=== PATIENT | female | born 2005 | race Caucasian/White ===

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

== ENCOUNTER → 2025-01-02 10:15 | Outpatient (BNVA) | payer BC, MEDICAID, SELFPAY | PROVIDERS: PCP Nurse Practitioner Family; Visit Provider Nurse Practitioner Family | DX: R10.11 Right upper quadrant pain (principal) | CPT/HCPCS: 80053; 81000; 81025; 85025 ==

== ENCOUNTER → 2025-01-07 09:54 | Outpatient (BNVA) | payer BC, MEDICAID, SELFPAY | PROVIDERS: PCP Nurse Practitioner Family; Visit Provider Nurse Practitioner Family | DX: R10.11 Right upper quadrant pain (principal); D50.9 Iron deficiency anemia, unspecified | CPT/HCPCS: 82728; 83550; 85025 ==

== ENCOUNTER 2025-01-13 07:42 | Outpatient (CLI) | payer SELFPAY ==
--- NOTE | 2025-01-13 08:00 | USR_ITS ---
PROCEDURE INFORMATION: Exam: US Abdomen; Limited Exam date and time: 01/13/2025 8:01 AM Age: 19 years old Clinical indication: Abdominal pain; Localized; Right upper quadrant (ruq); Additional info: R10.11 - right upper quadrant pain TECHNIQUE: Imaging protocol: Real time ultrasound of the abdomen with image documentation. Limited exam focused on the region of clinical interest. COMPARISON: No relevant prior studies available. FINDINGS: US/US gall bladder [id number] IMPRESSION: No acute findings.
== END 2025-01-13 07:43 | disposition home or self-care (01) ==
LOC: RAD 07:43
PROVIDERS: PCP Nurse Practitioner Family; Visit Provider Nurse Practitioner Family
DX: R10.11 Right upper quadrant pain (principal)
CPT/HCPCS: 76705

== ENCOUNTER 2025-01-21 15:13 | Inpatient (IN) | payer SELFPAY ==
[2025-01-21 15:28] VITALS: BP 120/80; PULSE 85; RESP 18; TEMP 36.7; O2SAT 96; BMI 34.5
--- NOTE | 2025-01-21 15:28 | W.ED.PSYCHS ---
HPI - Psych General: Chief Complaint: Psychiatric Symptoms Stated Complaint: MHE Time Seen by Provider: 01/21/25 15:14 Source: patient Mode of arrival: ambulatory Limitations: no limitations History of Present Illness: 19-year-old female states she been having severe depression she states she been having a lot of stressors at home the last 2 weeks she states that recently she started having active suicidal thoughts and is concerned she may harm herself. She denies any worsening from factors. Associated symptoms: Reports depression Related Data Previous Rx's ?Medication ?Instructions ?Recorded Disposable nebulizer circuit #1 ea 04/05/22 nebulizers #1 ea 04/05/22 montelukast 10 mg tablet 10 mg PO DAILY #30 tabs 08/29/23 (Singulair) fexofenadine 180 mg tablet 180 mg PO DAILY 90 days #90 tabs 11/08/23 (Rekha Allergy) topiramate 50 mg tablet (Topamax) 50 mg PO BID #60 tabs 03/02/24 venlafaxine 75 mg capsule,extended 75 mg PO DAILY #30 caps 03/02/24 release 24 hr (Effexor XR) ibuprofen 600 mg tablet 600 mg PO Q8H PRN pain #30 tabs 05/17/24 miscellaneous medical supply 1 ea miscellaneous DAILY #1 ea 05/17/24 miscellaneous medical supply 1 ea miscellaneous DAILY ankle 05/17/24 sprain #1 ea miscellaneous medical supply 1 ea miscellaneous PER PKG DIR 05/17/24 ankle sprain #1 ea ASO #1 ea 06/04/24 Supinator #1 ea 06/04/24 albuterol sulfate 90 mcg/actuation 2 puff inhalation Q6H PRN 06/27/24 aerosol inhaler shortness of breath or wheezing #8.5 grams sole supports #1 ea 07/23/24 budesonide-formoterol HFA 80 2 puff inhalation BID #10.2 grams 09/16/24 mcg-4.5 mcg/actuation aerosol inhaler (Symbicort) ferrous gluconate 324 mg (38 mg 324 mg PO BID #60 tabs 01/21/25 iron) tablet Allergies Allergy/AdvReac Type Severity Reaction Status Date / Time No Known Allergies Allergy Verified 01/02/25 09:11 Review of Systems Const: Denies: fever(s), chills, body aches or change in appetite ENMT: Denies: throat pain or dental pain Card: Denies: chest pain Resp: Denies: dyspnea GI: Denies: abdominal pain, nausea, vomiting or diarrhea : Denies: dysuria Musc: Denies: neck pain or back pain Skin/Breast: Denies: rash Neuro: Denies: headache(s) Psych: Reports: depression PFSH ED PFSH: Medical History Asthma Environmental and seasonal allergies Attention deficit disorder (ADD) without hyperactivity Surgical History [place] teeth extracted Hx of tonsillectomy History of eyelid surgery Left eye 2008 Family History Grandfather Hypertension Smoking Grandmother Cancer Colon Social History Smoking and tobacco/nicotine status: never used tobacco/nicotine Second hand smoke exposure: Yes Alcohol intake: never Substance/Drug Use: never Adopted: Yes Caregiver/support person: Yes Household members: family Housing: House Marital status: Single Number of children: 0 Highest education level completed: 12th Grade, No Diploma Do you think of yourself as: Straight/Heterosexual Current gender identity: Female Special juan m needs: No Physical Exam Const: COMMON NORMALS: no acute distress, patient oriented x3 and healthy appearing HENMT: COMMON NORMALS: normocephalic and atraumatic HEAD & SCALP: normocephalic and atraumatic Eye: COMMON NORMALS: conjunctivae normal CONJUNCTIVA: Yes conjunctivae normal Neck/C-Spine: COMMON NORMALS: full ROM and supple Chest: COMMONS NORMALS: normal inspection of the chest Resp: COMMON NORMALS: normal respiratory effort Cardio: COMMON NORMALS: regular rate RATE: regular rate Extremity: COMMON NORMALS: normal to inspection and full ROM Neuro: COMMON NORMALS: patient oriented x3, moves all extremities and no focal motor deficits Psych: COMMON NORMALS: mental status grossly normal, Normal thought process present and cooperative MOOD & AFFECT: Yes depressed mood THOUGHT PROCESS: Normal thought process present THOUGHT CONTENT: Yes Suicidality present Skin: COMMON NORMALS: no rashes or lesions noted and no wounds GENERAL SKIN EXAM: no rashes or lesions noted Course Vital Signs: Vital signs: Vital Signs Temperature 98.1 F 01/21/25 15:28 Pulse Rate 85 01/21/25 15:28 Respiratory Rate 18 01/21/25 15:28 Blood Pressure 120/80 01/21/25 15:28 Pulse Oximetry 98 01/21/25 15:53 Oxygen Delivery Me thod Room Air 01/21/25 15:53 MDM - Psych Medical Decision Making Patient presents here with suicidal ideation she was placed on 96-hour hold I spoke to psychiatrist will admit at this time. Medical Records I reviewed the patient's medical records. Lab Data I reviewed the patient's lab results. Laboratory Results HCG, Qual Negative (Negative) 01/21/25 15:40 No radiology studies performed this visit Discharge Plan Discharge Condition: Stable Prescriptions: No Action miscellaneous medical supply Misc 1 ea miscellaneous PER PKG DIR Qty: 1 0RF Rx Instructions: crutches miscellaneous medical supply Misc 1 ea miscellaneous DAILY Qty: 1 0RF Rx Instructions: walking boot miscellaneous medical supply Misc 1 ea miscellaneous DAILY Qty: 1 0RF Rx Instructions: walking boot ibuprofen 600 mg tablet 600 mg PO Q8H PRN (Reason: pain) Qty: 30 0RF (DME) ASO See Rx Instructions .Route .MEDSUPPLY Qty: 1 0RF Rx Instructions: As directed (DME) Supinator See Rx Instructions .Route .MEDSUPPLY Qty: 1 0RF Rx Instructions: As directed (DME) sole supports See Rx Instructions .Route .MEDSUPPLY Qty: 1 0RF Rx Instructions: As directed (DME) nebulizers Misc See Rx Instructions .ROUTE .MEDSUPPLY Qty: 1 0RF Rx Instructions: daily (DME) Disposable nebulizer circuit See Rx Instructions .ROUTE .MEDSUPPLY Qty: 1 0RF Rx Instructions: As directed montelukast [Singulair] 10 mg tablet 10 mg PO DAILY Qty: 30 2RF fexofenadine [Rekha Allergy] 180 mg tablet 180 mg PO DAILY 90 Days Qty: 90 1RF albuterol sulfate 90 mcg/actuation HFA aerosol inhaler 2 puff inhalation Q6H PRN (Reason: shortness of breath or wheezing) Qty: 8.5 2RF venlafaxine [Effexor XR] 75 mg capsule,extended release 24hr 75 mg PO DAILY Qty: 30 2RF topiramate [Topamax] 50 mg tablet 50 mg PO BID Qty: 60 2RF budesonide-formoterol [Symbicort] 80-4.5 mcg/actuation HFA aerosol inhaler 2 puff inhalation BID Qty: 10.2 2RF ferrous gluconate 324 mg (38 mg iron) tablet 324 mg PO BID Qty: 60 2RF Referrals: Madalyn Baldwin FNP-C [Primary Care Provider, Family Practice] Print Language: Kiswahili Coding Level of Care Code ED Supervisor Fish Bait Processing for Kathryn Lebron
[2025-01-21 15:53] VITALS: O2SAT 98
[2025-01-21 15:57] LABS: HCG Qualitative Urine. Negative (Negative)
[2025-01-21 16:10] LABS: Hematocrit 39.6 % (36-47); Hemoglobin 12.60 g/dL (12.4-14.8); Mean Corpuscular HGB Conc 31.8 g/dL (30-55); Mean Corpuscular Hemoglobin 25.3 pg (27-33); Mean Corpuscular Volume 79.4 fl (85-98); Nucleated Red Blood Cells % 0 %; Platelet Count 320 10^3/cmm (157-399); Red Blood Count 4.99 10^6/uL (3.85-5.65); White Blood Count 7.87 10^3/uL (4.5-13.0)
[2025-01-21 16:25] LABS: PCP Screen Urine Negative (Negative)
[2025-01-21 16:32] LABS: Alanine Aminotransferase 11 U/L (0-33); Albumin Level 4.2 g/dL (3.5-5.2); Alkaline Phosphatase 76 U/L (35-105); Anion Gap 18.0 (5-19); Aspartate Amino Transferase 17 U/L (0-32); Blood Urea Nitrogen 8 mg/dL (6-20); Calcium 9.0 mg/dL (8.5-10.5); Carbon Dioxide 20 mmol/L (22-29); Chloride 104 mmol/L (98-107); Creatinine Clr Calc Pharmacy 159.0851; Globulin 3.3 g/dL (1.3-4.6); Glucose 103 mg/dL (65-115); Osmolality Calculated 285 mOsm/kg (285-295); Potassium 4.0 mmol/L (3.5-5.1); Sodium 138 mmol/L (136-145); Total Protein 7.5 g/dL (6.6-8.7)
[2025-01-21 16:36] LABS: Acetaminophen < 5.0 ug/mL (10-30); Alcohol Level < 10 mg/dL (0-10); Salicylate < 0.3 mg/dL (3-10)
[2025-01-21 17:08] VITALS: BP 122/80; PULSE 95; RESP 16; TEMP 36.9; O2SAT 94
[2025-01-21 17:10] VITALS: BP 122/80; PULSE 95; RESP 16; TEMP 36.9; O2SAT 94
--- NOTE | 2025-01-21 17:47 | PC.NURSE ---
96 hr rights reviewed with pt @1018 with assistance of [facility] safety and security officer José Miguel Tobias. All education reviewed with pt at this time. Pt verbalized understanding to hold parameters and had no questions regarding hold. Pt copy was left @bedside with pt. Pt provided pudding as a snack. No further needs at this time.
[2025-01-21 19:50] VITALS: BP 105/63; PULSE 82; RESP 18; TEMP 36.7; O2SAT 98
[2025-01-22 06:00] VITALS: BP 90/60; PULSE 60; RESP 16; O2SAT 97
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
[2025-01-22 14:00] VITALS: BP 86/50; PULSE 68; RESP 16; TEMP 36.6; O2SAT 96
[2025-01-22 20:18] VITALS: BP 90/54; PULSE 74; RESP 16; TEMP 36.9; O2SAT 97
[2025-01-23 06:00] VITALS: BP 93/60; PULSE 67; RESP 16; O2SAT 96
[2025-01-23 14:00] VITALS: BP 110/64; PULSE 66; RESP 15; TEMP 36.7; O2SAT 98
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
[2025-01-23 20:26] VITALS: BP 90/51; PULSE 91; RESP 16; TEMP 36.7; O2SAT 96
[2025-01-24 06:00] VITALS: BP 90/59; PULSE 79; RESP 16; TEMP 36.6; O2SAT 95
[2025-01-24 14:00] VITALS: BP 111/60; PULSE 88; RESP 17; TEMP 36.4; O2SAT 97
[2025-01-24 14:17] VITALS: BP 90/59; PULSE 79; RESP 16; TEMP 36.6; O2SAT 95
== END 2025-01-24 15:47 | disposition home or self-care (01) | DRG 885 ==
LOC: ER 15:30 → NP 16:12
PROVIDERS: Admitting Provider Psychiatry & Neurology Psychiatry; Emergency Provider Emergency Medicine; PCP Nurse Practitioner Family; Visit Provider Psychiatry & Neurology Psychiatry
DX: F33.9 Major depressive disorder, recurrent, unspecified (principal); F41.1 Generalized anxiety disorder; E66.9 Obesity, unspecified; Z68.34 Body mass index [BMI] 34.0-34.9, adult; Z62.810 Personal history of physical and sexual abuse in childhood; Z81.8 Family history of other mental and behavioral disorders
CPT/HCPCS: 36415; 80053; 80306; 80307; 81025; 85025; 97150; 97165; 99285; J9999

== ENCOUNTER 2025-07-02 06:42 | Outpatient (CLI) | payer BC, MEDICAID, SELFPAY ==
--- NOTE | 2025-07-02 07:15 | US_ITS ---
WS: [id number] US pelv w/transvag [id number] HISTORY: N92.6 - Irregular menstruation, unspecified COMPARISON: None available. Uterus: 5.2 cm x 3.7 cm x 2.8 cm. Normal size anteverted uterus. No fibroid or mass. Small nabothian cyst. Endometrium: 0.4 cm. Normal. Right ovary: 2.7 cm x 2.7 cm x 2.6 cm. Normal size and vascularity, no cystic or solid masses. Corpus luteum cyst with probable hemorrhage in the RIGHT ovary. Left ovary: 2.4 cm x 2.9 cm x 2.1 cm. Normal size and vascularity, no cystic or solid masses. No free fluid in the cul-de-sac. US/US pelv w/transvag [id number] IMPRESSION: Normal transabdominal and transvaginal pelvic ultrasound.
== END 2025-07-02 06:43 | disposition home or self-care (01) ==
LOC: RAD 06:43
PROVIDERS: PCP Nurse Practitioner Family; Visit Provider Nurse Practitioner
DX: N92.6 Irregular menstruation, unspecified (principal); N83.11 Corpus luteum cyst of right ovary
CPT/HCPCS: 76830; 76856